=== PATIENT | male | born 2000 | race Caucasian/White ===

== ENCOUNTER 2018-04-05 19:15 | Emergency (ER) | payer OTHER ==
[~2018-04-05] VITALS: Ht 180.3 cm; Wt 72.6 kg
[2018-04-05 19:55] VITALS: BP 136/69
--- NOTE | 2018-04-05 20:03 | PHYS DOC ---
Past Medical History Past Medical History: No Pertinent History Past Surgical History: No Surgical History Alcohol Use: None Drug Use: None Adult General Chief Complaint Chief Complaint: [facility] HPI Patient is a 18 year old male presents the ED complaining of left shoulder injury 2 hours ago. States he was [place] [employer] and landed on his left shoulder in a circular piece of equipment. Describes the pain as sharp. Rates the pain as 7 out of 10. Patient has full range of motion. Denies fever, head/neck injury , LOC, vision changes, nausea/vomiting, dizziness, weakness, chest pain or shortness of breath. Review of Systems Review of Systems Constitutional: Denies fever or chills [] Respiratory: Denies cough or shortness of breath [] Cardiovascular: No additional information not addressed in HPI [] GI: Denies abdominal pain, nausea, vomiting, bloody stools or diarrhea [] : Denies dysuria or hematuria [] Musculoskeletal: Complains of left shoulder pain. Denies back pain. Integument: Denies rash or skin lesions [] Neurologic: Denies headache, focal weakness or sensory changes [] All other systems were reviewed and found to be within normal limits, except as documented in this note. Current Medications Current Medications Current Medications Medications (Trade) Dose Ordered Sig/Tressa Start Time Stop Time Status Last Admin Dose Admin Acetaminophen/ Hydrocodone Bitart (Lortab 5/325) 1 tab 1X ONCE 04/05/18 20:30 04/05/18 20:31 DC 04/05/18 20:34 1 TAB Allergies Allergies Allergies Coded Allergies Type Severity Reaction Last Updated Verified No Known Drug Allergies 04/05/18 No Physical Exam Physical Exam Constitutional: Well developed, well nourished, no acute distress, non-toxic appearance. [] HENT: Normocephalic, atraumatic Neck: Normal range of motion, no tenderness, supple, no stridor. [] Cardiovascular:Heart rate regular rhythm, no murmur [] Lungs & Thorax: Bilateral breath sounds clear to auscultation [] Abdomen: Bowel sounds normal, soft, no tenderness, no masses, no pulsatile masses. [] Skin: Warm, dry, no erythema, no rash. [] Back: No tenderness, no CVA tenderness. [] Extremities: mild left anterior shoulder tenderness, no overlying skin changes. no cyanosis, no clubbing, ROM intact, no edema. [] Neurologic: Alert and oriented X 3, normal motor function, normal sensory function, no focal deficits noted. [] Psychologic: Affect normal, judgement normal, mood normal. [] Current Patient Data Vital Signs Vital Signs Date Time Temp Pulse Resp B/P (MAP) Pulse Ox O2 Delivery O2 Flow Rate FiO2 04/05/18 19:55 98.6 64 16 136/69 (91) 99 Room Air 98.6 EKG EKG [] Radiology/Procedures Radiology/Procedures PROCEDURE: SHOULDER 2+V LEFT EXAM: 3 views left shoulder DATE: 04/05/2018 8:07 PM INDICATION: Left shoulder pain today COMPARISON: No Prior FINDINGS/ IMPRESSION: No evidence of acute fracture or dislocation. Joint spaces are preserved without significant degenerative/proliferative change. Humeral head is not high riding.[] Course & Med Decision Making Course & Med Decision Making Pertinent Labs and Imaging studies reviewed. (See chart for details) []Discussed imaging findings with patient and mother in the room. Patient's pain improved. Sling placed. Neurovascular intact post placement. Discussed follow-up with orthopedics this coming week. Provided contact information/ education. Discussed reasons to return to the ED. Patient understands and agrees with plan. Dragon Disclaimer Dragon Disclaimer This electronic medical record was generated, in whole or in part, using a voice recognition dictation system. Departure Departure Impression: Primary Impression: Shoulder injury Additional Impression: AC separation Disposition: 01 HOME, SELF-CARE Condition: IMPROVED Referrals: VIOLET DUMONT (PCP) ABBI SANDY II, MD Patient Instructions: Acromioclavicular Injuries, Shoulder Pain Problem Qualifiers LIANE NIETO Apr 05, 2018 20:03
[2018-04-05] MEDS ORDERED: HYDROcodone/APAP 5/325MG 1 TAB TABLET PO ONE (20:30)
--- NOTE | 2018-04-06 08:28 | RAD ---
EXAM: 3 views left shoulder DATE: 04/05/2018 8:07 PM INDICATION: Left shoulder pain today COMPARISON: No Prior FINDINGS/ IMPRESSION: No evidence of acute fracture or dislocation. Joint spaces are preserved without significant degenerative/proliferative change. Humeral head is not high riding. Electronically signed by: Moreno Goins MD (04/06/2018 8:24 AM) [facility]
== END 2018-04-05 20:39 | disposition home or self-care (01) ==
LOC: ER 19:15
DX: S43.102A Unspecified dislocation of left acromioclavicular joint, initial encounter (principal); X58.XXXA Exposure to other specified factors, initial encounter; Y93.89 Activity, other specified; Y92.89 Other specified places as the place of occurrence of the external cause; Y99.8 Other external cause status
CPT/HCPCS: 73030; 99284